=== PATIENT | female | born 1995 | race African-American/Black ===

== ENCOUNTER 2016-09-30 16:03 | Emergency (ER) | payer BC, OTHER ==
[2016-09-30 16:28] VITALS: BP 109/81; PULSE 95; TEMP 97; BMI 26.3
--- NOTE | 2016-09-30 16:38 | PDOC ---
History of Present Illness - General Chief Complaint: Eye Problem Stated Complaint: EYE PROBLEM Time Seen by Provider: 09/30/16 16:36 History Source: Patient Exam Limitations: No Limitations - History of Present Illness Initial Comments: 09/30/16 16:56 CHIEF COMPLAINT: Eyelash glue to the right eye. HISTORY OF PRESENT ILLNESS: Patient is a 21 year old female, no significant medical history, presents to the ER with eyelash glue in the right eye. REVIEW OF SYSTEMS: GENERAL/CONSTITUTIONAL: No fever or chills. No weakness. No weight change. HEAD, EYES, EARS, NOSE AND THROAT: No change in vision. Foreign body sensation to the right eye. No ear pain or discharge. No sore throat. RESPIRATORY: No cough, wheezing, or hemoptysis. SKIN : No rash or easy bruising. NEUROLOGIC: No headache, vertigo, loss of consciousness, or loss of sensation. HEMATOLOGIC/LYMPHATIC: No lymphadenopathy ALLERGIC/IMMUNOLOGIC: No hives or skin allergy. No latex allergy. PHYSICAL EXAM: GENERAL: The patient is awake, alert, and fully oriented, in no acute distress. HEAD: Normal with no signs of trauma. EYES: Pupils equal, round and reactive to light, extraocular movements intact, sclera anicteric, conjunctiva injected, corneal abrasion vs. foreign body vertically to mid cornea. ENT: Ears normal, nares patent, oropharynx clear without exudates. Moist mucous membranes. NECK: Normal range of motion, supple without lymphadenopathy, JVD, or masses. LUNGS: Breath sounds equal, clear to auscultation bilaterally. No wheezes, and no crackles. NEUROLOGICAL: Cranial nerves II through XII grossly intact. Normal speech, normal gait. SKIN: No erythema no facial edema. Warm, Dry, normal turgor, no rashes or lesions noted. Past History - Past Medical History Allergies/Adverse Reactions: Allergies Allergy/AdvReac Type Severity Reaction Status Date / Time No Known Allergies Allergy Verified 09/30/16 16:28 Home Medications: Ambulatory Orders Ofloxacin [Ocuflox] 1 drop OD QID #1 drops 09/30/16 Asthma: No Cancer: No Cardiac Disorders: No Diabetes: No HTN: No Seizures: No Thyroid Disease: No - Reproductive History (#): 1 Para: 0 - Immunization History Immunization Up to Date: Yes - Psycho/Social/Smoking Cessation Hx Anxiety: No Suicidal Ideation: No Smoking History: Never smoked Have you smoked in the past 12 months: No Information on smoking cessation initiated: No Hx Alcohol Use: No Drug/Substance Use Hx: No Substance Use Type: None Hx Substance Use Treatment: No *Physical Exam - Vital Signs Last Vital Signs Temp Pulse Resp BP Pulse Ox 97.0 F L 95 H 18 109/81 100 09/30/16 16:25 09/30/16 16:25 09/30/16 16:25 09/30/16 16:25 09/30/16 16:25 Medical Decision Making - Medical Decision Making 09/30/16 16:38 A/P : Foreign body to the right eye. Glue, spoke to Dr. Cabrera, opthamology. To start patient on ocuflox, 4 times a day. Do not flush eye more with normal saline because it may cause more irritation as per MD. To follow up in office tomorrow. *DC/Admit/Observation/Transfer Diagnosis at time of Disposition: Foreign body, eye Qualifiers: Encounter type: initial encounter Laterality: right Qualified Code(s): T15.91XA - Foreign body on external eye, part unspecified, right eye, initial encounter - Discharge Dispostion Disposition: HOME Condition at time of disposition: Good Admit: No - Prescriptions Prescriptions: Ofloxacin [Ocuflox] 1 drop OD QID #1 drops - Referrals Referrals: Dave Cabrera [Staff Physician] - - Patient Instructions Additional Instructions: do not Rub or scratch eye follow-up with ophthalmology tomorrow. Antibiotic drops 4 times a day to right eye as prescribed - Post Discharge Activity Work/School Note: Back to Work
[2016-09-30] MEDS ORDERED: OFLOXACIN 0.3% OPHTHALMIC SOLUTION 5 ML BOTTLE OD ONE (17:04)
== END 2016-09-30 17:16 | disposition home or self-care (01) ==
LOC: JERFT 16:03
DX: T15.91XA Foreign body on external eye, part unspecified, right eye, initial encounter (principal); X58.XXXA Exposure to other specified factors, initial encounter; Y93.9 Activity, unspecified; Y92.9 Unspecified place or not applicable
CPT/HCPCS: 99281-25

== ENCOUNTER 2018-04-26 10:53 | Emergency (ER) | payer OTHER ==
[2018-04-26 11:07] VITALS: TEMP 98.2; BMI 28.5
--- NOTE | 2018-04-26 11:34 | PDOC ---
*Physical Exam - Vital Signs Last Vital Signs Temp Pulse Resp BP Pulse Ox 98.2 F 91 H 18 127/83 98 04/26/18 10:56 04/26/18 10:56 04/26/18 10:56 04/26/18 10:56 04/26/18 10:56 *DC/Admit/Observation/Transfer - Referrals Referrals: Sole Correa [Primary Care Provider] - - Patient Instructions - Post Discharge Activity
--- NOTE | 2018-04-26 11:59 | PDOC ---
History of Present Illness - General Chief Complaint: Vaginal Bleeding Stated Complaint: 4WKS Time Seen by Provider: 04/26/18 11:11 History Source: Patient Exam Limitations: No Limitations - History of Present Illness Travel History: No Initial Comments: 04/26/18 11:54 22-year-old female approximately 4 weeks presents to ED with light brown spotting this morning after urinating company with mid suprapubic cramping radiating to her left suprapubic region. Patient denies dysuria, fever , chills, nausea, back pain or constipation. Timing/Duration: reports: intermittent Quality: reports: mild, cramping Abdominal Pain Onset Location: reports: suprapubic Pain Radiation: reports: no radiation Activities at Onset: reports: none Aggravating Factors: improves with: None Alleviating Factors: improves with: None Past History - Travel Traveled outside of the country in the last 30 days: No - Past Medical History Allergies/Adverse Reactions: Allergies Allergy/AdvReac Type Severity Reaction Status Date / Time No Known Allergies Allergy Verified 04/26/18 10:56 Home Medications: Ambulatory Orders Ofloxacin [Ocuflox] 1 drop OD QID #1 drops 09/30/16 Asthma: No Cancer: No Cardiac Disorders: No COPD: No Diabetes: No HTN: No Seizures: No Thyroid Disease: No - Reproductive History (#): 1 Para: 0 - Immunization History Immunization Up to Date: Yes - Suicide/Smoking/Psychosocial Hx Smoking History: Never smoked Have you smoked in the past 12 months: No Hx Alcohol Use: No Drug/Substance Use Hx: No Substance Use Type: None Hx Substance Use Treatment: No Patient Lives Alone: No Lives with/in: spouse/SO Review of Systems - Review of Systems Able to Perform ROS?: Yes Constitutional: No: Symptoms Reported HEENTM: No: Symptoms Reported Respiratory: No: Symptoms reported Cardiac (ROS): No: Symptoms Reported ABD/GI: Yes: Abdominal cramping (midsuprapubic) : Yes: Discharge (light brown) Musculoskeletal: No: Symptoms Reported Integumentary: No: Symptoms Reported Neurological: No: Symptoms reported Hematologic/Lymphatic: No: Symptoms Reported *Physical Exam - Vital Signs Last Vital Signs Temp Pulse Resp BP Pulse Ox 98.2 F 91 H 18 127/83 98 04/26/18 10:56 04/26/18 10:56 04/26/18 10:56 04/26/18 10:56 04/26/18 10:56 - Physical Exam General Appearance: Yes: Nourished, Appropriately Dressed. No: Apparent Distress HEENT: positive: EOMI. negative: Pale Conjunctivae Neck: negative: Supple Cardiovascular: positive: Regular Rhythm, Regular Rate. negative: Murmur Gastrointestinal/Abdominal: positive: Soft, Tenderness (mild mid suprapubic) Musculoskeletal: negative: CVA Tenderness Extremity: positive: Normal Capillary Refill. negative: Pedal Edema Integumentary: positive: Normal Color, Warm, Moist Neurologic: positive: Motor Strength 5/5 (ambulatory) Moderate Sedation - Procedure Monitoring Vital Signs: Procedure Monitoring Vital Signs Temperature 98.2 F 04/26/18 10:56 Pulse Rate 91 H 04/26/18 10:56 Respiratory Rate 18 04/26/18 10:56 Blood Pressure 127/83 04/26/18 10:56 O2 Sat by Pulse Oximetry (%) 98 04/26/18 10:56 ED Treatment Course - LABORATORY CBC & Chemistry Diagram: 04/26/18 12:11 04/26/18 12:11 Medical Decision Making - Medical Decision Making 04/26/18 12:00 chief complaint: spotting, mid suprapubic tenderness, approx 4 weeks preg Exam: mid suprapubic tenderness, no adnexal tenderness, light brown discharge Plan: ua, labs, 04/26/18 13:35 Laboratory Tests 04/26/18 04/26/18 04/26/18 12:11 12:11 12:11 WBC 6.3 Hgb 15.5 H Hct 45.0 Absolute Neuts (auto) 4.0 Sodium 136 Potassium 4.0 Chloride 104 Carbon Dioxide 25 Anion Gap 7 L BUN 8 Creatinine 0.9 Creat Clearance w eGFR > 60 Random Glucose 96 Calcium 9.0 Total Bilirubin 0.5 AST 13 L ALT 29 Alkaline Phosphatase 54 Total Protein 7.7 Albumin 4.1 Beta HCG, Quant 508.6 Urine Protein 1+ H Urine Ketones Trace H Urine Nitrite Negative Urine Urobilinogen 2.0 H Ur Leukocyte Esterase Negative Urine WBC (Auto) 1 Urine RBC (Auto) 1 04/26/18 13:43 Ultrasound shows a thickened endometrial stripe at 2.1 cm without evidence of intrauterine gestational sac. Right ovarian simple cyst/corpus luteum cyst is measuring 2.6 x 1.5 cm. Both ovaries appear unremarkable with normal vascular flow. *DC/Admit/Observation/Transfer Diagnosis at time of Disposition: Vaginal bleeding in - Discharge Dispostion Disposition: HOME Condition at time of disposition: Good - Referrals Referrals: Sole Correa [Primary Care Provider] - - Patient Instructions Printed Discharge Instructions: DI for Vaginal Bleeding During Additional Instructions: P have your hormone levels rechecked and may have an ultrasound performed at that time. If symptoms worsen such as abdominal pain heavy vaginal bleeding please return to the ED sooner than 48 hours. otherwise follow-up with your MEDICAL LIBRARIAN - Post Discharge Activity
[2018-04-26 12:41] LABS: URINE APPEARANCE CLEAR; URINE BILIRUBIN NEGATIVE (<2.0 mg/dL); URINE COLOR YELLOW; URINE GLUCOSE (UA) NEGATIVE (NEGATIVE); URINE KETONE TRACE (NEGATIVE); URINE LEUK ESTERASE NEGATIVE (NEGATIVE); URINE NITRITE NEGATIVE (NEGATIVE); URINE PROTEIN 1+ (NEGATIVE)
[2018-04-26 12:42] LABS: ALBUMIN 4.1 g/dl (3.4-5.0); ALK PHOS 54 U/L (45-117); ANION GAP 7 MMOL/L (8-16); BILIRUBIN,TOTAL 0.5 mg/dL (0.2-1); BLOOD UREA NITROGEN 8 mg/dL (7-18); CHLORIDE 104 mmol/L (98-107); CO2 25 mmol/L (21-32); CREATININE 0.9 mg/dL (0.55-1.3); GLUCOSE,RANDOM 96 mg/dL (74-106); SGOT/AST 13 U/L (15-37); SGPT/ALT 29 U/L (13-61); SODIUM 136 mmol/L (136-145); TOT PROT 7.7 g/dl (6.4-8.2)
[2018-04-26 12:45] LABS: BASO % 0.4 % (0-2.0); EOS % 1.4 % (0-4.5); HEMOGLOBIN 15.5 GM/dL (10.7-15.3); MCH 30.4 pg (25.7-33.7); MCHC 34.5 g/dl (32.0-36.0); MEAN CELL VOLUME 88.2 fl (80-96); MEAN PLT VOLUME 9.7 fl (7.5-11.1); MONO % 6.4 % (3.8-10.2); NEUT % 63.8 % (42.8-82.8); PLATELET COUNT 241 K/MM3 (134-434); RDW 13.1 % (11.6-15.6); WHITE BLOOD COUNT 6.3 K/mm3 (4.0-10.0)
[2018-04-26 12:51] LABS: EPI CELLS RARE /HPF (FEW); URINE MUCUS FEW
[2018-04-26 13:47] VITALS: BP 130/90; PULSE 100
== END 2018-04-26 13:48 | disposition home or self-care (01) ==
LOC: JER 10:53
DX: O26.891 Other specified pregnancy related conditions, first trimester (principal); O20.8 Other hemorrhage in early pregnancy; O34.81 Maternal care for other abnormalities of pelvic organs, first trimester; N83.11 Corpus luteum cyst of right ovary; Z3A.01 Less than 8 weeks gestation of pregnancy
CPT/HCPCS: 36415; 76817-TC; 80053; 81003; 81015; 84702; 85025; 86850; 86900; 86901; 87086; 99283-25

== ENCOUNTER 2018-05-05 08:42 | Emergency (ER) | payer OTHER ==
[2018-05-05 08:47] VITALS: BP 122/79; PULSE 92; TEMP 98.8; BMI 28.5
--- NOTE | 2018-05-05 09:42 | PDOC ---
History of Present Illness - General Chief Complaint: Vaginal Bleeding Stated Complaint: Pain Time Seen by Provider: 05/05/18 09:26 - History of Present Illness Initial Comments: 05/05/18 09:37 22 yo , LMP 03/25/18, at unknown gestational age, who p/w abdominal pain and vaginal bleeding. Patient reports ongoing, left>right crampy abdominal pain at rest, with no identifiable triggers or alleviators x 5 days. Also endorses vaginal bleeding beginngg 05-02-17, initially dark brown, then progressing to bright red, and now resolved. Denies abdominal trauma. TVUS (04/26/18) with absent intrauterine gestation. Patient denies BISHOP, vision change, palpitations, vomitting, F,C, CP, SOB, urinary complaints, diarrhea, constipation, hematuria, BPR, pelvic pain, lightheadedness, weakness, sensory changes. PMHx: as noted above ROS: as noted SHx: Denies Etoh, tobacco, IVDA. Denies h/o STI's. Allergies: NKDA Oyster Preparer: [facility] Past History - Past Medical History Allergies/Adverse Reactions: Allergies Allergy/AdvReac Type Severity Reaction Status Date / Time No Known Allergies Allergy Verified 05/05/18 08:44 Home Medications: Ambulatory Orders Ofloxacin [Ocuflox] 1 drop OD QID #1 drops 09/30/16 Asthma: No Cancer: No Cardiac Disorders: No COPD: No Diabetes: No HTN: No Seizures: No Thyroid Disease: No - Reproductive History (#): 1 Para: 0 Cervical CA: No Dysfunctional Uterine Bleeding: No Ectopic : No Endometrial CA: No Polycystic Ovaries: No Therapeutic (s) & number: No Tubal Ligation: No Spontaneous : 0 - Immunization History Immunization Up to Date: Yes - Suicide/Smoking/Psychosocial Hx Smoking History: Never smoked Have you smoked in the past 12 months: No Hx Alcohol Use: No Drug/Substance Use Hx: No Substance Use Type: None Hx Substance Use Treatment: No Review of Systems - Review of Systems Comments:: 05/05/18 09:42 GENERAL/CONSTITUTIONAL: No fever or chills. No weakness. HEAD, EYES, EARS, NOSE AND THROAT: No change in vision. No ear pain or discharge. No sore throat. CARDIOVASCULAR: No chest pain or shortness of breath RESPIRATORY: No cough, wheezing, or hemoptysis. GASTROINTESTINAL: + Abdominal pain and nausea. No vomiting, diarrhea or constipation. GENITOURINARY: + Vaginal bleeding. No dysuria, frequency, or change in urination. MUSCULOSKELETAL: No joint or muscle swelling or pain. No neck or back pain. SKIN: No rash NEUROLOGIC: No headache, vertigo, loss of consciousness, or change in strength/ sensation. ENDOCRINE: No increased thirst. No abnormal weight change HEMATOLOGIC/LYMPHATIC: No anemia, easy bleeding, or history of blood clots. ALLERGIC/IMMUNOLOGIC: No hives or skin allergy. *Physical Exam - Vital Signs Last Vital Signs Temp Pulse Resp BP Pulse Ox 98.8 F 92 H 18 122/79 99 05/05/18 08:45 05/05/18 08:45 05/05/18 08:45 05/05/18 08:45 05/05/18 08:45 - Physical Exam Comments: 05/05/18 09:42 GENERAL: Awake, alert, and fully oriented, in no acute distress HEAD: No signs of trauma, normocephalic, atraumatic EYES: PERRLA, EOMI, sclera anicteric, conjunctiva clear ENT: Hearing grossly normal, nares patent, oropharynx clear without exudates. Moist mucosa NECK: Normal ROM, supple, no lymphadenopathy, JVD, or masses LUNGS: No distress, speaks full sentences, clear to auscultation bilaterally HEART: Regular rate and rhythm, normal S1 and S2, no murmurs, rubs or gallops, peripheral pulses normal and equal bilaterally. ABDOMEN: + Lower abdominal ttp. Soft, NDS, normoactive bowel sounds. No guarding, no rebound. No masses. Neg CVA ttp. GENITOURINARY: Patient refuses male provider /Pelvic exam. EXTREMITIES : Normal inspection, Normal range of motion, no edema. No clubbing or cyanosis. SKIN: Warm, Dry, normal turgor, no rashes or lesions noted Moderate Sedation - Procedure Monitoring Vital Signs: Procedure Monitoring Vital Signs Temperature 98.8 F 05/05/18 08:45 Pulse Rate 92 H 05/05/18 08:45 Respiratory Rate 18 05/05/18 08:45 Blood Pressure 122/79 05/05/18 08:45 O2 Sat by Pulse Oximetry (%) 99 05/05/18 08:45 ED Treatment Course - LABORATORY CBC & Chemistry Diagram: 05/05/18 09:44 05/05/18 09:44 Medical Decision Making - Medical Decision Making 05/05/18 10:39 22 yo , LMP 03/25/18, at unknown gestational age, who p/w abdominal pain and vaginal bleeding. VSS, AF, A&OX3. + Lower abdominal ttp. Assess for viable IUP. Will consider ectopic , ovarian pathology/torsion/cystic rupture, FLORIDALMA, threatened , cystitis. ED Course: 05/05/18 12:14 HC 05/05/18 14:34 Blood type O+ CBC, CMP: Unremarkable 05/05/18 14:35 UA: 1+ LE 05/05/18 14:58 TVUS: Mean sac diameter gestational age 5w3d. Yolk sac is present, no pole identified. Probable early IUP. 05/05/18 14:59 Patient stable for d/c with return precautions., Advised to f/u with Oyster Preparer, repeat U/S and HCG. Continue vit. *DC/Admit/Observation/Transfer Diagnosis at time of Disposition: Vaginal bleeding in - Discharge Dispostion Condition at time of disposition: Stable Decision to Admit order: No - Referrals Referrals: Sole Correa [Primary Care Provider] - - Patient Instructions Printed Discharge Instructions: DI for Vaginal Bleeding During Additional Instructions: Please return to the emergency department with any new or worsening symptoms or concerns. Please follow up with your primary care physician within 72 hours. - Post Discharge Activity Forms/Work/School Notes: Back to Work - Attestations Physician Attestion: 05/05/18 09:42 I attest to the information provided in this note.
[2018-05-05 10:00] LABS: BASO % 0.5 % (0-2.0); EOS % 1.4 % (0-4.5); HEMATOCRIT 42.1 % (32.4-45.2); HEMOGLOBIN 14.3 GM/dL (10.7-15.3); LYMPH % 22.7 % (8-40); MCH 30.2 pg (25.7-33.7); MCHC 34.1 g/dl (32.0-36.0); MEAN CELL VOLUME 88.7 fl (80-96); MEAN PLT VOLUME 9.3 fl (7.5-11.1); MONO % 6.5 % (3.8-10.2); NEUT % 68.9 % (42.8-82.8); PLATELET COUNT 250 K/MM3 (134-434); RBC 4.74 M/mm3 (3.60-5.2); RDW 13.6 % (11.6-15.6); WHITE BLOOD COUNT 7.8 K/mm3 (4.0-10.0)
--- NOTE | 2018-05-05 10:32 | PDOC ---
Attending Attestation - Medical Decision Making 12:15pm Call placed to Radiology for read on US, made aware to call ultrasound. Call placed to US, made aware that they will have a radiologist read the study. 12:45pm Second call placed to US, made aware that they will have a radiologist read the study. 1:15pm Third call placed to US, made aware that they will have a radiologist read the study. 2:30pm Second call placed to radiology, updated that study has not been read, made aware that they will have a radiologist read the study. <Jan Mon - Last Filed: 05/05/18 14:42> - Resident Resident Name: Wisam Christina - ED Attending Attestation I have performed the following: I have examined & evaluated the patient, The case was reviewed & discussed with the resident, I agree w/resident's findings & plan - HPI HPI: 05/05/18 12:05 22 yo , LMP 03/25/18, at approx 6 weeks gestational age by LMP, who p/w lower abdominal pain and vaginal bleeding. Patient reports ongoing, left>right crampy abdominal pain at rest, with no identifiable triggers or alleviators x 5 days. Also endorses vaginal bleeding beginning 05-02-17, initially dark brown, then progressing to bright red, and now resolved. Denies abdominal trauma. TVUS (04/26/18) with absent intrauterine gestation. Ultrasound on 04/26/18 shows a thickened endometrial stripe at 2.1 cm without evidence of intrauterine gestational sac. Right ovarian simple cyst/corpus luteum cyst is measuring 2.6 x 1.5 cm. Both ovaries appear unremarkable with normal vascular flow. - Physicial Exam PE: 05/05/18 15:20 NAD, well appearing, PERRL, EOMI, MMM, nl conjunctiva, anicteric; neck supple. lungs clear, RRR, abdomen soft nontender. FLROES x4, no focal neuro deficits. No peripheral edema. normal color for ethnicity, WWP. pelvic exam with director sales training Ginny S. normal external genitalia. thick white discharge, but normal vulva no erythema. normal cervix, closed. bilateral mild adnexal tenderness without fullness. - Medical Decision Making 05/05/18 12:07 Hpi as documented, vitals wnl. DDx female: ectopic , miscarriage, demise, subchorionic hematoma, UTI in in . Fibroid uterus, vaginitis, infection , electrolyte/metabolic derangements. pelvic exam by me with director sales training Karly - no bleeding, but b/l adnexal tenderness. discharge present, but no itch or vulvar abnormalities. Labs and lytes normal. UA +blood; prior GC/chlamydia neg. prelim_neg for bacteria; small wbcs, f/u urine culture. pt w/o vaginal sx or abnormal urinary sx/itch, so decline tx for candidiasis for now, and defer to formal OB testing. Beta hcg >9000 (prior on 04/26/18 at 508), so appropriately elevating Rh _ no rhogam indicated. TVUS_ with single IUP - YS in uterus. no pelvic FF, no e/o ectopic. Dispo: OB followup, bleeding precautions, vitamins, rest and hydration advised. follows with Dr Graves, awaiting first trimester check this week. information provided to patient, made impression of impression and plan, agreeable with return precautions. 05/05/18 15:22 <Rula Armenta - Last Filed: 05/05/18 15:25> *DC/Admit/Observation/Transfer <[email or web address] - Last Filed: 05/05/18 14:42> - Discharge Dispostion Decision to Admit order: No <Rula Armenta - Last Filed: 05/05/18 15:25> Diagnosis at time of Disposition: Vaginal bleeding in - Discharge Dispostion Disposition: HOME Condition at time of disposition: Stable - Referrals Referrals: Sole Correa [Primary Care Provider] - - Patient Instructions Printed Discharge Instructions: DI for Vaginal Bleeding During Additional Instructions: Please return to the emergency department with any new or worsening symptoms or concerns. such as vaginal bleeding, abdominal pain, fainting, dehydration or vomiting. follow up with your OB doctor for care, take vitamins daily. your ob is Dr Graves. your beta hcg was 9000, your ultrasound showed an early IUP, no heart rate yet as still early. you should get swabbed and checked for yeast infection with your blind eyeletter. Please follow up with your primary care physician and OB within 72 hours. - Post Discharge Activity Forms/Work/School Notes: Back to Work Attestations - Attestations 05/05/18 14:45 Documentation prepared by Jan Mon, acting as medical research assistant for Rula Armenta MD. <Jan Mon - Last Filed: 05/05/18 14:42>
[2018-05-05 10:55] LABS: ALBUMIN 3.8 g/dl (3.4-5.0); ALK PHOS 54 U/L (45-117); ANION GAP 7 MMOL/L (8-16); BILIRUBIN,TOTAL 0.4 mg/dL (0.2-1); BLOOD UREA NITROGEN 7 mg/dL (7-18); CALCIUM 8.7 mg/dL (8.5-10.1); CHLORIDE 107 mmol/L (98-107); CO2 23 mmol/L (21-32); CREATININE 0.9 mg/dL (0.55-1.3); GLUCOSE,RANDOM 83 mg/dL (74-106); POTASSIUM 3.9 mmol/L (3.5-5.1); SGOT/AST 8 U/L (15-37); SGPT/ALT 21 U/L (13-61); SODIUM 137 mmol/L (136-145); TOT PROT 7.1 g/dl (6.4-8.2)
[2018-05-05 11:09] LABS: URINE APPEARANCE SLCLOUDY; URINE BILIRUBIN NEGATIVE (<2.0 mg/dL); URINE COLOR YELLOW; URINE GLUCOSE (UA) NEGATIVE (NEGATIVE); URINE KETONE TRACE (NEGATIVE); URINE LEUK ESTERASE 1+ (NEGATIVE); URINE NITRITE NEGATIVE (NEGATIVE); URINE PROTEIN 1+ (NEGATIVE)
[2018-05-05 14:58] LABS: EPI CELLS 1+ /HPF (FEW)
== END 2018-05-05 15:47 | disposition home or self-care (01) ==
LOC: JER 08:42
DX: O26.891 Other specified pregnancy related conditions, first trimester (principal); O20.8 Other hemorrhage in early pregnancy; Z3A.01 Less than 8 weeks gestation of pregnancy
CPT/HCPCS: 36415; 76817-TC; 80053; 81003; 81015; 84702; 85025; 86850; 86900; 86901; 87086; 99283-25

== ENCOUNTER → 2018-12-04 | Emergency (ER) | payer OTHER | LOC: JER 11:25 ==

== ENCOUNTER 2021-03-01 08:47 | Emergency (ER) | payer OTHER ==
[2021-03-01 09:12] VITALS: BP 117/74; PULSE 78; TEMP 98.7; BMI 29.8
[2021-03-01] MEDS ORDERED: KETOROLAC TROMETHAMINE 30 MG/1 ML VIAL IM ONE (09:44)
[2021-03-01] MEDS ORDERED: KETOROLAC TROMETHAMINE 30 MG/1 ML VIAL ONE (09:54)
== END 2021-03-01 10:51 | disposition home or self-care (01) ==
LOC: JER 08:47
PROC: 3E023GC Introduction of Other Therapeutic Substance into Muscle, Percutaneous Approach (ICD-10-PCS; principal; 2021-03-01)
DX: R05.9 Cough, unspecified (principal)
CPT/HCPCS: 71046-TC-FY; 99284-25; C9803; U0003; U0005